=== PATIENT | female | born 1965 | race Caucasian/White ===

== ENCOUNTER 2018-01-28 18:46 | Inpatient (IN) | payer BC, OTHER ==
[~2018-01-28] VITALS: Ht 154.9 cm; Wt 65.8 kg
[~2018-01-28 18:46] MED LIST: HYDROCHLOROTHIA25 MG PO; LISINOPRIL40 MG PO; NORVASC5 MG PO
[2018-01-28] MEDS ORDERED: ACETAMINOPHEN 325 MG TAB PO ONE ×2 (19:15→23:00)
[2018-01-28] MEDS ORDERED: CEFTRIAXONE SOD 1 GM VIAL IV ONE ×2 (19:15→23:00)
--- NOTE | 2018-01-28 20:23 | Diagnostic Imaging Report ---
EXAMINATION: CHEST 2 VIEWS 01/28/2018 7:13 PM COMPARISON: None INDICATION: Fever DISCUSSION: LINES: None. LUNGS: The lungs are well inflated and clear. No pneumonia or pulmonary edema. PLEURA: No pleural effusion or pneumothorax. HEART AND MEDIASTINUM: Mildly enlarged cardiac silhouette. The aorta is tortuous. BONES AND SOFT TISSUES: No acute osseous lesion. The soft tissues are normal. IMPRESSION: No evidence of pneumonia or pulmonary edema. Tomás Simon MD Signed by: Dr. Tomás Simon M.D. on 01/28/2018 8:19 PM
[2018-01-28 20:45] LABS: BILIRUBIN,URINE NEGATIVE (NEGATIVE); KETONES,URINE 1+ (NEGATIVE); LEUKOCYTE ESTERASE ,URINE 2+ (NEGATIVE); URINE UROBILINOGEN 0.2 mg/dL (0.2 - 1)
[2018-01-28 20:50] LABS: CLARITY,URINE SL CLOUDY (CLEAR); COLOR,URINE STRAW (YELLOW); NITRITE,URINE POSITIVE (NEGATIVE); PROTEIN,URINE DIPSTICK 1+ (NEGATIVE)
[2018-01-28 21:02] LABS: BACTERIA,URINE MODERATE /HPF; RBC,URINE 21-50 /HPF (0-5)
[2018-01-28 21:03] LABS: MUCUS,URINE MODERATE (RARE)
[2018-01-28] MEDS ORDERED: ONDANSETRON HCL INJ 2 MG/ML VIAL IV STA (22:20)
[2018-01-28] MEDS ORDERED: SODIUM CHLORIDE 0.9% 1000ML 1,000 ML IV ONE (22:30)
[2018-01-28 23:24] LABS: BASOPHILS # (AUTO) 0.1 (0.0-0.1); BASOPHILS % 0.5 % (0.0-1.0); EOSINOPHILS % 0.1 % (0.0-6.0); HEMATOCRIT 42.6 % (34.2-44.1); HEMOGLOBIN 14.4 g/dL (12.0-16.0); LYMPHOCYTES # (AUTO) 2.8 (1.0-3.2); LYMPHOCYTES % 19.2 % (18.0-39.1); MEAN CORPUSCULAR HEMOGLOBIN 28.9 pg (28-32); MEAN CORPUSCULAR HGB CONC 33.8 g/dL (31-35); MEAN CORPUSCULAR VOLUME 85.4 fL (81-99); MONOCYTES % 6.9 % (4.4-11.3); NEUTROPHILS # (AUTO) 10.4 (2.1-6.9); NEUTROPHILS % 72.5 % (38.7-80.0); PLATELET COUNT 351 x10e3/uL (140-360); RED BLOOD COUNT 4.99 x10e6/uL (3.6-5.1); RED CELL DISTRIBUTION WIDTH 13.8 % (11.7-14.4)
[2018-01-28 23:48] LABS: ALANINE AMINOTRANSFERASE 8 IU/L (0-55); ALBUMIN 3.5 g/dL (3.5-5.0); ALBUMIN/GLOBULIN RATIO 0.7 (0.8-2.0); ALKALINE PHOSPHATASE 89 IU/L (40-150); ANION GAP 17.5 mmol/L (8-16); BLOOD UREA NITROGEN 20 mg/dL (7-26); BUN/CREATININE RATIO 22 (6-25); CALCIUM 10.4 mg/dL (8.4-10.2); CARBON DIOXIDE 33 mmol/L (22-29); CHLORIDE 93 mmol/L (98-107); CREATININE, SERUM 0.93 mg/dL (0.57-1.11); EST GLOMERULAR FILTRATION RATE > 60 ML/MIN (60-); GLUCOSE 110 mg/dL (74-118); SODIUM 141 mmol/L (136-145)
[2018-01-28 23:54] LABS: POTASSIUM 2.5 mmol/L (3.5-5.1)
[2018-01-29] MEDS ORDERED: POTASSIUM CHLORIDE 20 MEQ TAB CR PO STA (00:10)
[2018-01-29] MEDS ORDERED: KCL 20MEQ/.9 SOD CHL 1,000 ML IV ONE (00:15)
[2018-01-29] MEDS ORDERED: SODIUM CHLORIDE FLUSH 10 ML SYR INJ PRN (00:30)
[2018-01-29] MEDS ORDERED: ONDANSETRON HCL INJ 2 MG/ML VIAL IV PRN (00:30)
--- OUTSIDE RECORDS SUMMARY | 2018-01-29 00:54 | XMS REPORT ---
Author Author [facility] Address Unknown Phone Unavailable Care Team Providers Care Specialist Field Engineer Name Role Phone KELLY JOHNSON Unavailable Unavailable Problems This patient has no known problems. Allergies, Adverse Reactions, Alerts This patient has no known allergies or adverse reactions. Medications This patient has no known medications. Results Test Description Test Time Test Comments Text Results Atomic Results Result Comments CHEST 2 VIEWS [place] [address] Patient Name: DEIRDRE ORTA MR # : [id number] : 1965 Age/Sex: 52/F Req #: [id number] Adm Physician: Ordered by: KELLY JOHNSON MD Report #: [id number] Location: ER Room/Bed: Procedure: [id number] DX/CHEST 2 VIEWS Exam Date: Exam Time: REPORT STATUS: Signed EXAMINATION: CHEST 2 VIEWS 01/28/2018 7:13 PM COMPARISON: None INDICATION: Fever DISCUSSION: LINES: None. LUNGS: The lungs are well inflated and clear. No pneumonia or pulmonary edema. PLEURA: No pleural effusion or pneumothorax. HEART AND MEDIASTINUM: Mildly enlarged cardiac silhouette. The aorta is tortuous. BONES AND SOFT TISSUES: No acute osseous lesion. The soft tissues are normal. IMPRESSION: No evidence of pneumonia or pulmonary edema. Estevan Bailey MD Signed by: Dr. Estevan Bailey M.D. on 01/28/2018 8:19 PM Dictated By: ESTEVAN BAILEY MD 18 Transcribed By: ROBERT on 01/28/182018 COPY TO: KELLY JOHNSON MD
[2018-01-29] MEDS: CEFTRIAXONE SOD 1 GM VIAL IV SCH ×2 (00:57→14:13)
[2018-01-29] MEDS ORDERED: PROMETHAZINE 12.5MG/ NACL 0.9% 12.5 MG/50 ML BAG IV PRN (08:45)
--- NOTE | 2018-01-29 09:32 | History and Physical ---
PRIMARY CARE PHYSICIAN: Dr. Esteves CHIEF COMPLAINT: Right flank pain, nausea, vomiting, diarrhea. HISTORY OF PRESENT ILLNESS: This is a 52-year-old woman with history of nephrolithiasis, now developing fever, chills, nausea, vomiting, and diarrhea as well as right-sided flank pain. She has subjective fevers. Unable to keep food down due to vomiting. [place]leman very weak for the past week. These symptoms have been ongoing. Here she was found to have acute pyelonephritis. She was admitted for further evaluation and management. PAST MEDICAL HISTORY 1. Hypertension. 2. TIA. 3. Urinary tract infection. PAST SURGICAL HISTORY 1. Cholecystectomy. 2. Tonsillectomy. 3. Gastric sleeve. ALLERGIES: PER ELECTRONIC MEDICAL RECORD. FAMILY HISTORY/SOCIAL HISTORY: The patient is single. She has no children. She denies any alcohol, illicits or cigarettes. MEDICATIONS: Per electronic medical record. REVIEW OF SYSTEMS: Denies any dizziness or chest pain. PHYSICAL EXAMINATION VITAL SIGNS: Reviewed. GENERAL: A tired-appearing woman resting in bed. HEENT: Anicteric. Pupils are responsive to light. No oral lesions. CARDIOVASCULAR: Normal S1 and S2. LUNGS: Moderate breath sounds. ABDOMEN: Soft, nontender, nondistended. Right flank tender to percussion. EXTREMITIES: No edema or calf tenderness. NEUROLOGIC: Alert and oriented times 3. Moving all extremities. SKIN: Dry. PSYCHIATRIC: Flat affect. LABS: Reviewed. MEDICATIONS: Reviewed. ASSESSMENT AND PLAN: A 52-year-old woman. 1. Acute right-sided pyelonephritis. We will continue with IV ceftriaxone. Follow up cultures. 2. Urinary tract infection. We will continue antibiotics as noted above. Follow up cultures. 3. Severe hypokalemia. Replace and recheck. 4. Hypercalcemia/dehydration. We will rehydrate the patient. 5. Physical deconditioning. Physical therapy. 6. Intractable nausea and vomiting. P.R.N. antiemetics. 7. Prophylaxis: Use Lovenox and Pepcid. 8. Disposition: Follow up cultures. Physical therapy consultation. Job#: [id number]
[2018-01-29] MEDS: POTASSIUM CITRATE 10 MEQ TAB PO SCH (09:40)
[2018-01-29] MEDS: SODIUM CHLORIDE 0.9% 1000ML 1,000 ML IV SCH (09:40)
[2018-01-29] MEDS: AMLODIPINE BESYLATE 5 MG TAB PO SCH ×2 (09:40→19:08)
[2018-01-29] MEDS: FAMOTIDINE 20 MG/2 ML VIAL IV SCH ×2 (09:40→19:08)
[2018-01-29] MEDS: LISINOPRIL 20 MG TAB PO SCH (09:40)
[2018-01-29 09:41] LABS: BASOPHILS # (AUTO) 0.1 (0.0-0.1); BASOPHILS % 0.5 % (0.0-1.0); EOSINOPHILS # (AUTO) 0.1 (0.0-0.4); EOSINOPHILS % 0.3 % (0.0-6.0); HEMATOCRIT 37.2 % (34.2-44.1); HEMOGLOBIN 12.4 g/dL (12.0-16.0); LYMPHOCYTES # (AUTO) 2.5 (1.0-3.2); LYMPHOCYTES % 15.9 % (18.0-39.1); MEAN CORPUSCULAR HGB CONC 33.3 g/dL (31-35); MEAN CORPUSCULAR VOLUME 86.9 fL (81-99); MONOCYTES # (AUTO) 0.9 (0.2-0.8); NEUTROPHILS # (AUTO) 11.7 (2.1-6.9); PLATELET COUNT 290 x10e3/uL (140-360); RED BLOOD COUNT 4.28 x10e6/uL (3.6-5.1); RED CELL DISTRIBUTION WIDTH 13.6 % (11.7-14.4)
[2018-01-29 09:46] LABS: ANION GAP 12.9 mmol/L (8-16); BLOOD UREA NITROGEN 19 mg/dL (7-26); BUN/CREATININE RATIO 22 (6-25); CALCIUM 9.3 mg/dL (8.4-10.2); CARBON DIOXIDE 33 mmol/L (22-29); CHLORIDE 100 mmol/L (98-107); CREATININE, SERUM 0.86 mg/dL (0.57-1.11); EST GLOMERULAR FILTRATION RATE > 60 ML/MIN (60-); GLUCOSE 163 mg/dL (74-118); MAGNESIUM 1.7 MG/DL (1.3-2.1); POTASSIUM 3.9 mmol/L (3.5-5.1); SODIUM 142 mmol/L (136-145)
[2018-01-29] MEDS: HYDRALAZINE HCL 25 MG TAB PO SCH ×2 (14:24→22:24)
[2018-01-29] MEDS: ENOXAPARIN SOD INJ 40 MG/0.4 ML SYR SC SCH (19:08)
[2018-01-29 21:30] VITALS: BP 190/100
[2018-01-29] MEDS ORDERED: ACETAMINOPHEN 325 MG TAB PO PRN (22:45)
[2018-01-30] VITALS (10 sets, daily range): BP systolic 118–160; BP diastolic 72–87
[2018-01-30] MEDS: CEFTRIAXONE SOD 1 GM VIAL IV SCH ×2 (00:30→13:12)
[2018-01-30] MEDS: HYDRALAZINE HCL 25 MG TAB PO SCH ×3 (05:10→22:00)
[2018-01-30 07:14] LABS: BASOPHILS # (AUTO) 0.1 (0.0-0.1); BASOPHILS % 0.5 % (0.0-1.0); EOSINOPHILS # (AUTO) 0.1 (0.0-0.4); EOSINOPHILS % 0.9 % (0.0-6.0); HEMATOCRIT 36.7 % (34.2-44.1); LYMPHOCYTES % 28.8 % (18.0-39.1); MEAN CORPUSCULAR HEMOGLOBIN 28.9 pg (28-32); MEAN CORPUSCULAR HGB CONC 32.7 g/dL (31-35); MEAN CORPUSCULAR VOLUME 88.4 fL (81-99); MONOCYTES # (AUTO) 0.8 (0.2-0.8); MONOCYTES % 7.9 % (4.4-11.3); NEUTROPHILS # (AUTO) 6.4 (2.1-6.9); PLATELET COUNT 311 x10e3/uL (140-360); RED BLOOD COUNT 4.15 x10e6/uL (3.6-5.1); RED CELL DISTRIBUTION WIDTH 13.5 % (11.7-14.4)
[2018-01-30 07:43] LABS: ALBUMIN 2.5 g/dL (3.5-5.0); ALBUMIN/GLOBULIN RATIO 0.7 (0.8-2.0); ALKALINE PHOSPHATASE 65 IU/L (40-150); ANION GAP 10.1 mmol/L (8-16); BLOOD UREA NITROGEN 12 mg/dL (7-26); BUN/CREATININE RATIO 17 (6-25); CALCIUM 9.3 mg/dL (8.4-10.2); CARBON DIOXIDE 33 mmol/L (22-29); CHLORIDE 101 mmol/L (98-107); CREATININE, SERUM 0.71 mg/dL (0.57-1.11); EST GLOMERULAR FILTRATION RATE > 60 ML/MIN (60-); GLUCOSE 96 mg/dL (74-118); POTASSIUM 3.1 mmol/L (3.5-5.1); SODIUM 141 mmol/L (136-145)
[2018-01-30 07:46] LABS: ALANINE AMINOTRANSFERASE < 6 IU/L (0-55)
--- NOTE | 2018-01-30 08:44 | Progress Note ---
DATE: January 30, 2018 TIME: 7:55 a.m. OVERNIGHT: No events. REVIEW OF SYSTEMS: Denies any dizziness. VITAL SIGNS: Reviewed. PHYSICAL EXAMINATION GENERAL: A tired-appearing woman resting in bed. HEENT: Anicteric. CARDIOVASCULAR: Normal S1 and S2. LUNGS: Moderate breath sounds. ABDOMEN: Soft, nontender, nondistended. The right flank is less tender. EXTREMITIES: No edema or calf tenderness. NEUROLOGIC: Alert and oriented times 3. Moving all extremities. SKIN: Dry. PSYCHIATRIC: Normal affect. LABS: Reviewed. MEDICATIONS: Reviewed. ASSESSMENT AND PLAN: A 52-year-old woman. 1. Acute right-sided pyelonephritis. 2. Urinary tract infection with gram-negative rods. 3. Severe hypokalemia. 4. Hypercalcemia/dehydration. 5. Physical deconditioning. 6. Intractable nausea and vomiting. PLAN 1. Continue IV fluids. 2. Continue IV antibiotics. 3. Follow up sensitivity and speciation. 4. Follow up labs. Obtain potassium level again. 5. Continue current care with IV antibiotics. 6. Continue Lovenox prophylaxis. Job#: [id number]
[2018-01-30] MEDS: POTASSIUM CITRATE 10 MEQ TAB PO SCH (09:00)
[2018-01-30] MEDS: FAMOTIDINE 20 MG/2 ML VIAL IV SCH (09:34)
[2018-01-30] MEDS: LISINOPRIL 20 MG TAB PO SCH (09:35)
[2018-01-30] MEDS: AMLODIPINE BESYLATE 5 MG TAB PO SCH ×2 (09:35→17:47)
[2018-01-30] MEDS: SODIUM CHLORIDE 0.9% 1000ML 1,000 ML IV SCH (10:45)
[2018-01-30] MEDS ORDERED: POTASSIUM CHLORIDE 20MEQ/100ML 100 ML IV ONE (12:45)
[2018-01-30] MEDS: ENOXAPARIN SOD INJ 40 MG/0.4 ML SYR SC SCH (17:47)
[2018-01-30] MEDS: FAMOTIDINE 20 MG TAB PO SCH (17:47)
[2018-01-31] VITALS: BP 193/93
[2018-01-31] MEDS: CEFTRIAXONE SOD 1 GM VIAL IV SCH ×2 (00:30→12:30)
[2018-01-31 04:00] VITALS: BP 158/90
[2018-01-31] MEDS: HYDRALAZINE HCL 25 MG TAB PO SCH ×2 (05:31→14:00)
[2018-01-31 07:05] VITALS: BP 165/65
[2018-01-31 07:21] VITALS: BP 165/85
[2018-01-31] MEDS ORDERED: Potassium Citrate PO (08:02)
[2018-01-31] MEDS ORDERED: FAMOTIDINE20 MG PO (08:02)
[2018-01-31] MEDS ORDERED: HYDRALAZINE HCL25 MG PO (08:02)
[2018-01-31] MEDS ORDERED: KEFLEX500 MG PO (08:02)
[2018-01-31 09:00] LABS: BASOPHILS # (AUTO) 0.1 (0.0-0.1); BASOPHILS % 0.9 % (0.0-1.0); EOSINOPHILS # (AUTO) 0.1 (0.0-0.4); EOSINOPHILS % 1.1 % (0.0-6.0); HEMATOCRIT 38.1 % (34.2-44.1); HEMOGLOBIN 12.4 g/dL (12.0-16.0); LYMPHOCYTES # (AUTO) 2.5 (1.0-3.2); LYMPHOCYTES % 33.2 % (18.0-39.1); MEAN CORPUSCULAR HEMOGLOBIN 28.8 pg (28-32); MEAN CORPUSCULAR HGB CONC 32.5 g/dL (31-35); MEAN CORPUSCULAR VOLUME 88.6 fL (81-99); MONOCYTES # (AUTO) 0.6 (0.2-0.8); MONOCYTES % 7.4 % (4.4-11.3); NEUTROPHILS # (AUTO) 4.3 (2.1-6.9); NEUTROPHILS % 56.9 % (38.7-80.0); PLATELET COUNT 391 x10e3/uL (140-360); RED CELL DISTRIBUTION WIDTH 13.6 % (11.7-14.4)
[2018-01-31] MEDS: SODIUM CHLORIDE 0.9% 1000ML 1,000 ML IV SCH (09:00)
[2018-01-31] MEDS: POTASSIUM CITRATE 10 MEQ TAB PO SCH (09:00)
[2018-01-31 09:19] LABS: BLOOD UREA NITROGEN 8 mg/dL (7-26); BUN/CREATININE RATIO 12 (6-25); CALCIUM 9.4 mg/dL (8.4-10.2); CARBON DIOXIDE 30 mmol/L (22-29); CHLORIDE 102 mmol/L (98-107); CREATININE, SERUM 0.68 mg/dL (0.57-1.11); EST GLOMERULAR FILTRATION RATE > 60 ML/MIN (60-); GLUCOSE 103 mg/dL (74-118); SODIUM 141 mmol/L (136-145)
[2018-01-31] MEDS: FAMOTIDINE 20 MG TAB PO SCH ×2 (09:21→17:26)
[2018-01-31] MEDS: AMLODIPINE BESYLATE 5 MG TAB PO SCH ×2 (09:21→17:26)
[2018-01-31] MEDS: LISINOPRIL 20 MG TAB PO SCH (09:22)
[2018-01-31] MEDS ORDERED: POTASSIUM CHLORIDE 10MEQ/100ML 100 ML IV ONE ×2 (10:45→13:15)
[2018-01-31] MEDS ORDERED: POTASSIUM CHLORIDE 20MEQ/100ML 100 ML IV ONE (10:45)
[2018-01-31 11:15] VITALS: BP 153/87
[2018-01-31 16:00] VITALS: BP 164/99
[2018-01-31] MEDS: ENOXAPARIN SOD INJ 40 MG/0.4 ML SYR SC SCH (17:00)
== END 2018-01-31 18:06 | disposition home or self-care (01) | DRG 690 ==
LOC: ER 18:46 → ERHOLD 01-29 00:50 → MED/SURG3 01-29 21:02
PROVIDERS: ADMIT Internal Medicine; ATTEND Internal Medicine
DX: N10 Acute pyelonephritis (principal); E83.52 Hypercalcemia; I10 Essential (primary) hypertension; E87.6 Hypokalemia; E86.0 Dehydration; B96.20 Unspecified Escherichia coli [E. coli] as the cause of diseases classified elsewhere
CPT/HCPCS: 36415; 71046; 80048; 80053; 81001; 83735; 84100; 85025; 87040; 87086; 87186; 93005; 96360; 96361; 96367; 96374; 96376; 97139; 99284; J0696; J1650; J2405; J3480; J7030

== ENCOUNTER 2018-09-01 01:19 | Observation (INO) | payer OTHER ==
[~2018-09-01] VITALS: Ht 154.9 cm; Wt 66.2 kg
[~2018-09-01 01:19] MED LIST changes: +FAMOTIDINE20 MG PO; +HYDRALAZINE HCL25 MG PO; +KEFLEX500 MG PO; +Potassium Citrate PO
[2018-09-01] MEDS ORDERED: ONDANSETRON HCL INJ 2 MG/ML VIAL IV STA (01:55)
[2018-09-01] MEDS ORDERED: LORAZEPAM INJ 2 MG/ML VIAL IV ONE (02:00)
[2018-09-01] MEDS ORDERED: HYDRALAZINE HCL 20 MG/ML VIAL IV STA (02:34)
[2018-09-01 02:42] LABS: BASOPHILS # (AUTO) 0.1 (0.0-0.1); BASOPHILS % 0.6 % (0.0-1.0); EOSINOPHILS # (AUTO) 0.1 (0.0-0.4); HEMATOCRIT 40.6 % (34.2-44.1); HEMOGLOBIN 13.6 g/dL (12.0-16.0); LYMPHOCYTES # (AUTO) 2.9 (1.0-3.2); MEAN CORPUSCULAR HEMOGLOBIN 28.3 pg (28-32); MEAN CORPUSCULAR HGB CONC 33.5 g/dL (31-35); MEAN CORPUSCULAR VOLUME 84.6 fL (81-99); MONOCYTES # (AUTO) 0.3 (0.2-0.8); MONOCYTES % 3.9 % (4.4-11.3); NEUTROPHILS # (AUTO) 4.8 (2.1-6.9); NEUTROPHILS % 58.4 % (38.7-80.0); PLATELET COUNT 201 x10e3/uL (140-360)
--- NOTE | 2018-09-01 02:47 | Diagnostic Imaging Report ---
CHEST SINGLE (PORTABLE), 09/01/2018 1:36 AM Technique: CHEST SINGLE (PORTABLE) Comparison: 01/28/2018 upright PA and lateral. 11/11/2013 portable view Clinical history: ^chest pain ^[id number] ^0215 ^Y Findings: See Impression Impression: 1. Stable enlarged cardiac silhouette and tortuous or ectatic thoracic aorta. 2. No edema or consolidation. Linear left basilar atelectasis/scar. 3. No effusion or pneumothorax. Signed by: Dr Sydnie Benitez MD on 09/01/2018 2:43 AM
[2018-09-01 03:01] LABS: ALANINE AMINOTRANSFERASE 19 IU/L (0-55); ALBUMIN 4.2 g/dL (3.5-5.0); ALBUMIN/GLOBULIN RATIO 1.2 (0.8-2.0); ALKALINE PHOSPHATASE 115 IU/L (40-150); ANION GAP 14.6 mmol/L (8-16); BLOOD UREA NITROGEN 19 mg/dL (7-26); BUN/CREATININE RATIO 24 (6-25); CALCIUM 10.3 mg/dL (8.4-10.2); CARBON DIOXIDE 31 mmol/L (22-29); CHLORIDE 99 mmol/L (98-107); CREATINE KINASE 92 IU/L (29-168); EST GLOMERULAR FILTRATION RATE > 60 ML/MIN (60-); GLUCOSE 137 mg/dL (74-118); SODIUM 142 mmol/L (136-145)
[2018-09-01 03:04] LABS: POTASSIUM 2.6 mmol/L (3.5-5.1)
[2018-09-01] MEDS ORDERED: POTASSIUM CHLORIDE 20MEQ/100ML 100 ML IV STA ×2 (03:20)
[2018-09-01] MEDS ORDERED: SODIUM CHLORIDE 0.9% 1000ML 1,000 ML IV SCH (03:30)
[2018-09-01] MEDS ORDERED: HYDROCHLOROTHIA25 MG PO (03:43)
[2018-09-01] MEDS ORDERED: TYLENOL WITH C1 EACH PO (03:43)
[2018-09-01] MEDS ORDERED: LISINOPRIL-HCT1 EAC1 PO (03:43)
[2018-09-01] MEDS ORDERED: ONDANSETRON HCL INJ 2 MG/ML VIAL IV PRN (03:45)
[2018-09-01] MEDS ORDERED: FAMOTIDINE 20 MG/2 ML VIAL IV SCH (03:45)
[2018-09-01] MEDS ORDERED: MORPHINE SULFATE 2 MG/ML SYR IV PRN (03:45)
[2018-09-01] MEDS ORDERED: POTASSIUM CHLORIDE 20MEQ/100ML 100 ML ONE (07:35)
[2018-09-01 07:45] LABS: CREATINE KINASE MB 1.2 ng/mL (0-5.0)
[2018-09-01] MEDS: ASPIRIN 81 MG ENTERIC COATED PO SCH (09:50)
[2018-09-01] MEDS: POTASSIUM CHLORIDE 10MEQ EA PO SCH ×2 (09:50→12:22)
[2018-09-01 09:53] VITALS: BP 187/93
[2018-09-01 09:55] VITALS: BP 187/93
[2018-09-01] MEDS: LISINOPRIL 20 MG TAB PO SCH (09:55)
[2018-09-01 10:27] LABS: MAGNESIUM 2.2 MG/DL (1.3-2.1); PHOSPHORUS 3.2 MG/DL (2.3-4.7)
[2018-09-01 11:42] LABS: CREATINE KINASE MB 0.8 ng/mL (0-5.0)
[2018-09-01] MEDS ORDERED: POTASSIUM CHLORIDE 10MEQ EA PO SCH (12:20)
--- NOTE | 2018-09-01 13:24 | History and Physical ---
DISPOSITION: Patient placed in observation. CHIEF COMPLAINT: Epigastric pain and low potassium level. HISTORY: A 52-year-old female who has taken lisinopril/HCT, but not taken potassium replacement. The patient came in with a potassium level of 2.6, but more importantly, she was having epigastric pain after taking Tylenol No. 3 for right toothache. Patient came in. Cardiac enzyme has been negative. EKG is otherwise unremarkable. The patient is otherwise stable. She is comfortable at this time. She wants to go home after a potassium replacement. The patient was given multiple options. PAST MEDICAL HISTORY: Hypertension, reflux, hiatal hernia with reflux symptoms. PAST SURGICAL HISTORY: Gastric sleeve, tonsillectomy, and cholecystectomy. SOCIAL HISTORY: Patient does not smoke or use alcohol. No recreational drug use. 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 ALLERGIES: NO KNOWN ALLERGY. HOME MEDICATIONS: Lisinopril/HCTZ and potassium. REVIEW OF SYSTEMS: Epigastric discomfort and pressure dull pain is resolved. Right toothache, resolved. PHYSICAL EXAMINATION VITAL SIGNS: Temperature is 98, blood pressure 141/52, pulse rate 80, respirations 18. GENERAL: The patient is not in acute distress. She is awake. HEENT: Normocephalic, atraumatic. Sclerae anicteric. NECK: Supple grossly. PULMONARY: Clear. CARDIOVASCULAR: Bradycardia secondary to low potassium most likely. ABDOMEN: Soft and unremarkable. EXTREMITIES: No cyanosis or edema. NEUROLOGIC: No gross focal deficit. LABORATORY DATA: Sodium is 142, potassium 2.6, chloride 99, bicarb is 31, BUN is 19, creatinine 0.8, glucose is 137. WBC is 8.1, hemoglobin 13.6, hematocrit 40.6, and platelets is 201. IMPRESSION 1. Hypokalemia secondary to lisinopril/HCTZ taken and not taken potassium replacement. 2. Epigastric dull discomfort, could be multi-etiology including reflux, musculoskeletal, and hiatal hernia symptoms, but remotely could be secondary to coronary disease. PLAN: Discussed with the patient at length. The patient wants to just replacement the potassium and then go home. She does not want to stay to see a glove wrapper at this time for a stress test. The patient will receive potassium replacement today, add on magnesium and phosphorus level. If the levels are all otherwise replaced, the patient may go home today and followup with her family doctor for a referral to glove wrapper for nuclear stress test as an outpatient. Discussed with the patient at length. For now, when the patient go home, we will continue with the lisinopril/HCTZ and I will add on potassium elixir for the patient to take at home. Patient is otherwise stable at this time. Job#: [id number] AUBREY
[2018-09-01] MEDS: HYDRALAZINE HCL 20 MG/ML VIAL IV PRN ×2 (15:59→20:29)
[2018-09-01 16:25] LABS: BLOOD UREA NITROGEN 20 mg/dL (7-26); BUN/CREATININE RATIO 26 (6-25); CALCIUM 9.7 mg/dL (8.4-10.2); CARBON DIOXIDE 29 mmol/L (22-29); CHLORIDE 104 mmol/L (98-107); CREATININE, SERUM 0.76 mg/dL (0.57-1.11); EST GLOMERULAR FILTRATION RATE > 60 ML/MIN (60-); GLUCOSE 85 mg/dL (74-118); SODIUM 142 mmol/L (136-145)
[2018-09-01 16:51] VITALS: BP 190/90
[2018-09-01 16:52] LABS: CREATINE KINASE MB 0.8 ng/mL (0-5.0)
[2018-09-01 17:28] VITALS: BP 143/72
[2018-09-01 19:53] VITALS: BP 168/82
[2018-09-01 20:05] VITALS: BP 168/82
[2018-09-02 00:13] VITALS: BP 153/72
[2018-09-02 04:00] VITALS: BP 178/83
[2018-09-02] MEDS: HYDRALAZINE HCL 20 MG/ML VIAL IV PRN (05:01)
[2018-09-02 05:35] LABS: ALANINE AMINOTRANSFERASE 11 IU/L (0-55); ALBUMIN 3.1 g/dL (3.5-5.0); ALBUMIN/GLOBULIN RATIO 1.1 (0.8-2.0); ALKALINE PHOSPHATASE 94 IU/L (40-150); ANION GAP 10.4 mmol/L (8-16); BLOOD UREA NITROGEN 21 mg/dL (7-26); BUN/CREATININE RATIO 29 (6-25); CALCIUM 9.5 mg/dL (8.4-10.2); CARBON DIOXIDE 28 mmol/L (22-29); CHLORIDE 107 mmol/L (98-107); CHOL/HDL RATIO 3.1 (3.0-3.6); CHOLESTEROL 178 MD/DL (0-199); CREATININE, SERUM 0.73 mg/dL (0.57-1.11); EST GLOMERULAR FILTRATION RATE > 60 ML/MIN (60-); GLUCOSE 94 mg/dL (74-118); HDL CHOLESTEROL 57 MG/DL (40-60); LDL CHOLESTEROL 108 MG/DL (60-130); POTASSIUM 3.4 mmol/L (3.5-5.1); SODIUM 142 mmol/L (136-145); TRIGLYCERIDES 66 MG/DL (0-149)
[2018-09-02 06:45] VITALS: BP_SYST 170; BP_SYST 180; BP_DIAS 73
[2018-09-02 07:32] LABS: BASOPHILS # (AUTO) 0.1 (0.0-0.1); BASOPHILS % 0.9 % (0.0-1.0); EOSINOPHILS # (AUTO) 0.1 (0.0-0.4); EOSINOPHILS % 1.9 % (0.0-6.0); HEMATOCRIT 38.3 % (34.2-44.1); HEMOGLOBIN 12.5 g/dL (12.0-16.0); LYMPHOCYTES # (AUTO) 2.9 (1.0-3.2); LYMPHOCYTES % 53.5 % (18.0-39.1); MEAN CORPUSCULAR HEMOGLOBIN 28.2 pg (28-32); MEAN CORPUSCULAR HGB CONC 32.6 g/dL (31-35); MEAN CORPUSCULAR VOLUME 86.3 fL (81-99); MONOCYTES # (AUTO) 0.5 (0.2-0.8); MONOCYTES % 9.3 % (4.4-11.3); NEUTROPHILS # (AUTO) 1.9 (2.1-6.9); NEUTROPHILS % 34.4 % (38.7-80.0); PLATELET COUNT 189 x10e3/uL (140-360); RED BLOOD COUNT 4.44 x10e6/uL (3.6-5.1); RED CELL DISTRIBUTION WIDTH 13.5 % (11.7-14.4)
[2018-09-02] MEDS: LISINOPRIL 20 MG TAB PO SCH (08:06)
[2018-09-02] MEDS: ASPIRIN 81 MG ENTERIC COATED PO SCH (08:06)
[2018-09-02] MEDS ORDERED: POTASSIUM CHLORIDE 10MEQ EA PO ONE (09:15)
[2018-09-02 09:53] VITALS: BP 144/80
[2018-09-02] MEDS ORDERED: POTASSIUM CHLO10 MEQ PO (10:18)
--- NOTE | 2018-09-02 13:19 | Discharge Summary ---
FINAL DIAGNOSES 1. Atypical chest pain. 2. Hypokalemia secondary to diuretic. SUMMARY: This 52-year-old female was taking lisinopril/hydrochlorothiazide twice a day. Patient came in with low potassium level, subsequently replaced. Patient is stable. She has some epigastric pain. The patient would prefer to go see her family doctor for referral to tire recapping machine operator as outpatient. Patient is otherwise stable. Cardiac enzymes are negative. She did have a history of gastric sleeve. The patient is otherwise stable. She is comfortable. Cardiac enzymes have been negative. Potassium on admission was 2.6, replaced. It is 3.4 now. She will get 20 mEq of potassium prior to discharge today. Prescription for the patient to take K-Dur 10 mEq b.i.d. The patient is taking lisinopril/hydrochlorothiazide twice a day. Patient is stable and discharged home today. Job#: [id number]
== END 2018-09-02 10:50 | disposition home or self-care (01) ==
LOC: ER 01:19 → ERHOLD 03:43 → IMCU 09:24
PROVIDERS: ADMIT Internal Medicine; ATTEND Internal Medicine
DX: E87.6 Hypokalemia (principal); T46.4X5A Adverse effect of angiotensin-converting-enzyme inhibitors, initial encounter; R07.89 Other chest pain
CPT/HCPCS: 36415 ×2; 71045; 80048; 80053 ×2; 80061; 82550; 82553; 83735; 84100; 84484; 85025 ×2; 93005; 96375; 99284; G0378 ×2; J0360 ×2; J3480; J7030; J2405

== ENCOUNTER 2020-02-10 03:19 | Observation (INO) | payer OTHER ==
[~2020-02-10] VITALS: Ht 152.4 cm; Wt 63.5 kg
[~2020-02-10 03:19] MED LIST changes: +LISINOPRIL-HCT1 EAC1 PO; +POTASSIUM CHLO10 MEQ PO; +TYLENOL WITH C1 EACH PO
[2020-02-10] MEDS ORDERED: ASPIRIN 81 MG CHEW TAB PO ONE (03:30)
[2020-02-10] MEDS ORDERED: AMLODIPINE BESY10 MG PO (03:35)
[2020-02-10] MEDS ORDERED: TRIAMTERENE-HCTZ1 EA PO (03:35)
[2020-02-10] MEDS ORDERED: LOSARTAN POTASS50 MG PO (03:35)
[2020-02-10 03:37] LABS: BASOPHILS # (AUTO) 0.1 (0.0-0.1); BASOPHILS % 0.9 % (0.0-1.0); EOSINOPHILS % 0.7 % (0.0-6.0); HEMATOCRIT 42.7 % (34.2-44.1); HEMOGLOBIN 14.5 g/dL (12.0-16.0); LYMPHOCYTES % 35.6 % (18.0-39.1); MEAN CORPUSCULAR HEMOGLOBIN 28.7 pg (28-32); MEAN CORPUSCULAR VOLUME 84.4 fL (81-99); MONOCYTES # (AUTO) 0.5 (0.2-0.8); MONOCYTES % 8.4 % (4.4-11.3); NEUTROPHILS % 54.4 % (38.7-80.0); PLATELET COUNT 239 x10e3/uL (140-360); RED BLOOD COUNT 5.06 x10e6/uL (3.6-5.1); RED CELL DISTRIBUTION WIDTH 12.8 % (11.7-14.4)
[2020-02-10 03:45] LABS: INR 0.91; PROTHROMBIN TIME 12.8 seconds (11.9-14.5)
[2020-02-10 03:46] LABS: PARTIAL THROMBOPLASTIN TIME 29.2 seconds (23.8-35.5)
[2020-02-10 03:55] LABS: ALANINE AMINOTRANSFERASE 8 IU/L (0-55); ALBUMIN 4.4 g/dL (3.5-5.0); ALBUMIN/GLOBULIN RATIO 1.3 (0.8-2.0); ALKALINE PHOSPHATASE 107 IU/L (40-150); BLOOD UREA NITROGEN 27 mg/dL (7-26); BUN/CREATININE RATIO 31 (6-25); CALCIUM 10.3 mg/dL (8.4-10.2); CARBON DIOXIDE 29 mmol/L (22-29); CHLORIDE 103 mmol/L (98-107); CREATINE KINASE 65 IU/L (29-168); CREATININE, SERUM 0.88 mg/dL (0.57-1.11); EST GLOMERULAR FILTRATION RATE > 60 ML/MIN (60-); GLUCOSE 122 mg/dL (74-118); SODIUM 145 mmol/L (136-145)
[2020-02-10] MEDS ORDERED: POTASSIUM CHLORIDE 20 MEQ TAB CR PO STA (04:14)
--- NOTE | 2020-02-10 04:19 | Diagnostic Imaging Report ---
EXAMINATION: CHEST SINGLE (PORTABLE) INDICATION: Chest pain. COMPARISON: Chest radiograph 09/01/2018. FINDINGS: TUBES and LINES: None. LUNGS: Lungs are moderately inflated. There is no evidence of pneumonia or pulmonary edema. PLEURA: No pleural effusion or pneumothorax. HEART AND MEDIASTINUM: The cardiomediastinal silhouette is unremarkable. There are atherosclerotic calcifications within the aorta. BONES AND SOFT TISSUES: No acute osseous lesion. Soft tissues are unremarkable. UPPER ABDOMEN: No free air under the diaphragm. IMPRESSION: No acute thoracic abnormality. Signed by: Dr. Jocy Riggs MD on 02/10/2020 4:16 AM
[2020-02-10] MEDS ORDERED: ONDANSETRON HCL INJ 2MG/ML 2ML 2 MG/ML VIAL IV PRN (04:30)
[2020-02-10] MEDS ORDERED: SODIUM CHLORIDE FLUSH 10 ML SYR INJ PRN (04:30)
[2020-02-10] MEDS ORDERED: FAMOTIDINE 20 MG TAB PO SCH (04:30)
[2020-02-10] MEDS ORDERED: NITROGLYCERIN 0.4 MG SUBL SL PRN (04:30)
[2020-02-10] MEDS ORDERED: MORPHINE SULFATE 2 MG/ML SYR 1ML IV PRN (04:30)
[2020-02-10] MEDS ORDERED: FAMOTIDINE 20 MG TAB ONE (04:31)
[2020-02-10 07:53] VITALS: BP 173/108
[2020-02-10 08:10] VITALS: BP 173/108
--- NOTE | 2020-02-10 08:10 | NUR ---
PATIENT RECEIVED FROM ER PER WHEEL CHAIR. ALERT AND VERBALLY RESPONSIVE. DENIED PAIN AT THIS TIME. NOTED WITH ELEVATED B/P, MD NOTIFIED. SKIN WARM AND DRY TO TOUCH, RESPIRATION EVEN AND UNLABORED, ABDOMEN SOFT AND NON DISTENDED. TELEMETRY BOX [address] ORIENTED TO SURROUNDING, BED IN LOWER POSITION, CALL LIGHT AT REACH.
[2020-02-10] MEDS ORDERED: AMLODIPINE BESYLATE 10 MG TAB PO SCH (09:00)
[2020-02-10] MEDS ORDERED: ASPIRIN 81 MG ENTERIC COATED PO SCH (09:00)
[2020-02-10] MEDS ORDERED: LOSARTAN POTASSIUM 100 MG TAB PO SCH (09:00)
[2020-02-10] MEDS ORDERED: PANTOPRAZOLE SOD 40 MG TABEC PO SCH (09:45)
[2020-02-10] MEDS ORDERED: TRIAMTERENE/HCTZ 37.5-25 MG TAB PO SCH (10:00)
--- NOTE | 2020-02-10 10:02 | NUR ---
PATIENT OFF UNIT FOR A PROCEDURE.
--- NOTE | 2020-02-10 10:40 | Consultation ---
DATE OF CONSULTATION: 02/10/2020 REASON FOR CONSULTATION: Chest pain. CHIEF COMPLAINT: Chest pain. HISTORY OF PRESENT ILLNESS: This is a 54-year-old female with history of hypertension, status post gastric sleeve, reflux, and hiatal hernia. The patient presents to [facility] ER with complaints of chest pain. Cardiology was consulted to evaluate the patient. The patient seen in the room, reports chest pain across the chest, burning sensation and pressure, nonradiating, worse when lying flat. For the past 3-4 days, no exertional chest pain reported. No associated symptoms other than worse at night while lying flat. Denies any shortness of breath. Currently without any chest pain. Initial enzymes negative x1. PAST MEDICAL HISTORY: Hypertension, reflux, status post gastric sleeve in 2017, and hiatal hernia. PAST SURGICAL HISTORY: Gastric sleeve in 2017, tonsillectomy, and cholecystectomy. SOCIAL HISTORY: She is single. She works at [employer]. She denies any alcohol or tobacco use. FAMILY HISTORY: Father in his 70s, history of CAD. Mother alive, about 79 years old, history of hypertension and hyperlipidemia. HOME MEDICATIONS: 1. Amlodipine 10 mg daily. 2. Losartan 50 mg daily. 3. Triamterene/HCTZ 37.5/25 mg daily. ALLERGIES: NO KNOWN ALLERGIES. REVIEW OF SYSTEMS: GENERAL: Denies any weight changes, fatigue, weakness, fevers, chills, or night sweats. SKIN: No rashes or sores reported. HEENT: Denies any nausea, vomiting, vision change, blurred vision, double vision, epistaxis, sore throat, or swollen neck. CARDIAC: Chest pain as above. Positive for dyspnea on exertion. No orthopnea, PND, or lower extremity edema. RESPIRATORY: Denies any shortness of breath, however, positive for dyspnea on exertion. No hemoptysis. GI: Reports good appetite. No nausea or vomiting. Positive for epigastric burning sensation. Denies any diarrhea, constipation, melena, tarry or bloody stools. GENITOURINARY: Denies any frequency, urgency, dysuria, or hematuria. VASCULAR: Denies any lower extremity edema or claudication. MUSCULOSKELETAL: Denies any muscle weakness or joint pain. Positive for joint pains. NEUROLOGIC: No numbness, tingling, weakness, paralysis, blackout, or seizures. HEMATOLOGY: Denies any anemia or any bruising. ENDOCRINE: Denies any heat or cold intolerance, polyuria, polydipsia, or polyphagia. PHYSICAL EXAMINATION: VITAL SIGNS: Height 60 inches, weight 140 pounds. Temperature 97.2, pulse 67, respiratory rate 19, blood pressure 173/108, and pulse ox 100% on room air. GENERAL: Appears stated age, reliable informant, in no acute distress. SKIN: No rashes or bruises noted. HEENT: Normocephalic. Pupils are equal and reactive. Extraocular movements intact. Trachea midline. No JVD. No carotid bruits noted. HEART: Regular rate and rhythm. PMI at 4th and 5th intercostal space. LUNGS: Bilateral clear to auscultation. Good airway entry. ABDOMEN: Soft, nontender, and nondistended. No organomegaly noted. MUSCULOSKELETAL: Good muscle strength throughout. No lower extremity swelling noted. VASCULAR: +2 radial pulses bilaterally, +2 DP and PT pulses bilaterally. NEUROLOGIC: Cranial nerves 2 through 12 seem intact. LABORATORY DATA: White count 5.5, hemoglobin 14.5, hematocrit 42, and platelets 239. Chemistry; sodium 135, potassium 3.0, chloride 103, BUN 27, and creatinine 0.8. Troponin less than 0.001. Chest x-ray, no acute thoracic abnormalities. ASSESSMENT: 1. Chest pain. 2. Reflux disease. 3. Hypertension. 4. Hypokalemia. PLAN: The patient presents to [facility] ER with complaints of chest pain, mixed features. The patient is concerned about coronary artery disease given her family history. Echo to evaluate heart function and structure. We will do a stress test to evaluate symptoms. Start PPI therapy, Protonix. Replete potassium. We will check a TSH, lipid panel. We will continue to monitor the patient and adjust cardiac therapy/further recommendations as course progresses. Thank you very much for this consult. Dictated by Phill Villarreal, SANDRITA Laurie Sanabria MD DC/JANNIE /[id number]
--- NOTE | 2020-02-10 10:44 | NUR ---
PATIENT BACK TO UNIT AT THIS TIME. HAD A STRESS TEST. IN BED WITH CALL LIGHT AT REACH.
[2020-02-10 11:03] LABS: CHOL/HDL RATIO 3.1 (3.0-3.6)
[2020-02-10 11:15] VITALS: BP 135/81
[2020-02-10 12:04] LABS: CREATINE KINASE MB 0.9 ng/mL (0-5.0)
[2020-02-10] MEDS ORDERED: PANTOPRAZOLE SO40 MG PO (14:19)
--- NOTE | 2020-02-10 14:55 | NUR ---
PATIENT DISCHARGED HOME. DISCHARGE INSTRUCTIONS, PRESCRIPTION, AND FOLLOW UP GIVEN TO PATIENT, SHE VERBALIZED UNDERSTANDING. IV TO RIGHT AC REMOVED WITH TIP INTACT. ALL PERSONAL ITEMS TAKEN WITH PATIENT. LEFT UNIT PER WHEEL CHAIR TO FRONT LOBBY IN STABLE CONDITION.
--- NOTE | 2020-02-10 20:52 | Discharge Summary ---
FINAL DIAGNOSIS: Noncardiac chest pain. SECONDARY DIAGNOSIS: Hypertension. VENDING MACHINE REPAIRER: Dr. Sanabria, Cardiology. PROCEDURES/STUDIES PERFORMED: 1. Stress test, which was negative. 2. Echocardiogram, which was unremarkable. HISTORY: Per H and P. HOSPITAL COURSE: The patient's repeat troponin was negative as well. Therefore, no acute myocardial infarction. The patient underwent stress test, which was negative. Her pain could potentially be due to reflux, which I will prescribe Protonix or this could be anxiety related to stress at home. The patient's hypokalemia was repleted. Her blood pressure is stable. We will continue her three blood pressure medicines at home. The patient was seen and examined today. CONDITION ON DISCHARGE: Stable. DISCHARGE MEDICATIONS: Please see medication reconciliation form. The patient will follow up with her primary care doctor in two weeks. Yiching MD MEHDI Castaneda/JANNIE /[id number]
--- NOTE | 2020-02-14 07:07 | EXERCISE STRESS TEST ---
DATE OF STUDY: 02/10/2020 09:28:00 Stress Test - Treadmill ONLY INDICATION FOR STUDY: Atypical chest pain. TECHNICAL DETAIL: Risks, risks, benefits, pros and cons of today's exercise treadmill stress test explained to the patient, the patient agreed to proceed. She was brought down to the stress lab where 12-lead EKG monitoring and blood pressure monitoring were obtained. She exercised on a Alexandr protocol for a total duration of 7 minutes and 16 seconds terminating into stage III of the protocol. Baseline heart rate went from a baseline of 87 beats per minute to a maximum of 141 beats per minute, which is above our target heart rate of 140 beats per minute. Blood pressure went from baseline of 155/76 to a maximum of 201/97, which is appropriate blood pressure response. Underlying EKG revealed normal sinus rhythm, normal axis and no ST-T wave changes, and at peak exercise there were no ischemic EKG changes and there were no chest pain symptoms. The patient had just shortness of breath and protocol was terminated due to dyspnea. CONCLUSIONS: 1. Exercise treadmill stress test is negative for any ischemic EKG changes or chest pain symptoms. 2. Overall findings of stress test are compatible with a low risk stress test. MD CURTIS Pérez/JANNIE /[id number]
== END 2020-02-10 14:45 | disposition home or self-care (01) ==
LOC: ER 03:19 → ERHOLD 04:26 → MED/SURG3 07:40
PROVIDERS: ADMIT Internal Medicine; ATTEND Internal Medicine
DX: R07.89 Other chest pain (principal); I10 Essential (primary) hypertension; Z98.84 Bariatric surgery status; Z90.49 Acquired absence of other specified parts of digestive tract; Z82.49 Family history of ischemic heart disease and other diseases of the circulatory system; E87.6 Hypokalemia; K21.9 Gastro-esophageal reflux disease without esophagitis
CPT/HCPCS: 36415; 71045; 80053; 80061; 82550; 82553; 84443; 84484; 85025; 85610; 85730; 93005; 93017; 93306; 99284; G0378; S0164